=== PATIENT | male | born 1975 | race Caucasian/White ===

== ENCOUNTER 2019-10-13 08:21 | Emergency (ER) | payer MEDICAID, SELFPAY ==
--- NOTE | ~2019-10-13 | XR_ITS ---
EXAMINATION: XR chest 1V portable DATE: 10/13/2019 09:16 INDICATION: Hyperventilation. Anxiety. TECHNIQUE: A single frontal view of the chest was obtained. COMPARISON: CT abdomen and pelvis 04/03/2017 FINDINGS: The chest demonstrates clear lungs without pneumonia, pleural effusion, or pneumothorax. Th e heart size is normal. IMPRESSION: 1. No acute cardiopulmonary disease. Reviewed, dictated and finalized at location A.
[2019-10-13 08:30] VITALS: BP 139/79; PULSE 56; RESP 17; TEMP 36.1; O2SAT 100
[2019-10-13] MEDS: LORazepam 0.5 MG TABLET 1 MG PO (09:06)
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
[2019-10-13 09:40] VITALS: BP 122/67; PULSE 50; RESP 16; O2SAT 98
== END 2019-10-13 09:40 | disposition home or self-care (01) ==
PROVIDERS: Emergency Provider Emergency Medicine
DX: F41.9 Anxiety disorder, unspecified (principal); R06.4 Hyperventilation; F17.210 Nicotine dependence, cigarettes, uncomplicated
CPT/HCPCS: 71045; 99283; A9270

== ENCOUNTER 2020-11-28 08:39 | Emergency (ER) | payer OTHER, SELFPAY ==
--- NOTE | ~2020-11-28 | US_ITS ---
EXAMINATION: US abdomen limited DATE: 11/28/2020 10:25 INDICATION: Epigastric abdominal pain. TECHNIQUE: Multiple grayscale and Doppler ultrasound images of the abdomen were obtained. COMPARISON: CT abdomen and pelvis 04/03/2017 FINDINGS: The visualized portions of the head, body, and tail of the pancreas are normal. The liver i s normal without focal lesion. No liver surface nodularity. There is normal flow in main portal vein. The gallbladder is normal in size. No gallstones or gallbladder wall thickening. There was no sonogr aphic Rutledge sign. The common duct is normal and measures 5 mm. IMPRESSION: 1. Normal right upper quadrant ultrasound. Reviewed, dictated and finalized at location A.
[2020-11-28 08:41] VITALS: BP 135/70; PULSE 51; RESP 17; TEMP 36.8; O2SAT 97
[2020-11-28 09:02] VITALS: BP 121/59; O2SAT 96
--- NOTE | 2020-11-28 09:17 | ED.ABDPAIN ---
HPI - Abdominal Pain General Chief Complaint: Abdominal Pain Stated Complaint: ABD PAIN Time Seen by Provider: 11/28/20 08:54 Source: patient and RN notes reviewed Mode of arrival: EMS Limitations: no limitations History of Present Illness HPI narrative: This is a 45 year old male who presents for evaluation of epigastric abdominal pain. He developed pain 1 week ago. He reports his pain was mild initially but it became severe this morning. He called EMS and he was given fentanyl, so he states his pain is 1/10 currently. Approximately 1 month ago, he was admitted to [facility] for evaluation for bleeding ulcer. He had an upper endoscopy performed which showed nonbleeding duodenal ulcer and biopsy was performed at this time. He was discharged from hospital on 11/05/20 without any pain. He has been taking protonix twice a day as prescribed. He states he has not been eating very healthy over the past week so he thought that may be causing his pain. He denies melena but thinks he may have seen blood tinge in his stool yesterday. He developed nausea and vomiting this morning with his severe pain. He has appointment with PCP in 2 days. Related Data Home Medications Medication Instructions Recorded Confirmed alprazolam 0.5 mg PO DAILY 10/13/19 pantoprazole [Protonix] 20 mg PO QAM 11/28/20 Allergies Allergy/AdvReac Type Severity Reaction Status Date / Time iodixanol Allergy Unknown hives, Verified 11/28/20 08:55 itching Review of Systems Review of Systems: All systems reviewed & are unremarkable except as noted in HPI and below PMFSH Past Medical History Medical History (Updated 11/28/20 @ 11:15 by Katheryn Horne MD) Anxiety Duodenal ulcer disease Social History Social History (Updated 10/13/19 @ 09:26 by Td Pool MD) Tobacco type: cigarettes Alcohol intake: current Substance use: unknown Gender identity (if verbalized by the patient): Male Exam Const: General: no acute distress and alert Orientation/consciousness: patient oriented x3 Eyes: EOM: EOMs intact bilaterally Chest: Chest palpation & inspection: normal inspection of the chest Resp: Effort & Inspection: normal respiratory effort and no retractions Auscultation: clear to auscultation bilaterally Cardio: Rate: regular rate Rhythm: regular rhythm Heart sounds: no murmurs GI: GI Palp: Yes Soft to palpation, Yes Tenderness to palpation present (GI) (epigastric) and No Guarding due to palpation present (GI) Auscultation: normal bowel sounds Rectal Exam: normal sphincter tone Other: heme negative- guaic negative Skin: General skin exam: normal color Neuro: General: patient oriented x3, moves all extremities and CN's II-XI intact bilaterally Psych: Mental Status: mental status grossly normal Affect: normal affect Course Reevaluation(s) Reevaluation #1: Patient has no abdominal tenderness, nausea or vomiting. Abdominal exam is benign. I discussed labs are unremarkable . No sign of GI bleeding at this time with heme negative. He will follow up with doctor in 2 days. Date: 11/28/20 Time: 11:13 Vital Signs Vital signs: Vital Signs Temperature 98.2 F 11/28/20 08:41 Pulse Rate 51 L 11/28/20 08:41 Respiratory Rate 17 11/28/20 08:41 Blood Pressure 135/70 11/28/20 08:41 Pulse Oximetry 97 11/28/20 08:41 Temperature 98.2 F 11/28/20 08:41 Pulse Rate 64 11/28/20 10:36 Respiratory Rate 17 11/28/20 08:41 Blood Pressure 128/74 11/28/20 10:36 Pulse Oximetry 96 11/28/20 09:02 MDM - Abdominal Pain Lab Data Attestation: I reviewed the patient's lab results. Result diagrams: 11/28/20 09:31 11/28/20 09:31 Labs: Lab Results 11/28/20 11/28/20 11/28/20 Range/Units 09:31 09:31 09:31 WBC 9.1 (4.5-10.0) K/mm3 RBC 4.24 L (4.6-6.20) M/mm3 Hgb 13.2 L (14.0-18.0) g/dL Hct 40.6 L (42.0-52.0) % MCV 95.8 (80-100) fl MCH 31.1
[2020-11-28] MEDS: PANTOPRAZOLE SODIUM IV 40 MG VIAL IV PUSH (09:35)
[2020-11-28 09:40] LABS: Basophils Absolute Auto 0.1 K/mm3 (0.0-0.1); Basophils Percent Auto 0.8 % (0.2-1.2); Eosinophils Absolute Auto 0.2 K/mm3 (0-0.3); Eosinophils Percent Auto 2.5 % (0-4.4); Hematocrit 40.6 % (42.0-52.0); Hemoglobin 13.2 g/dL (14.0-18.0); Immature Granulocyte Absolute 0.02 K/mm3 (0.00-0.031); Immature Granulocyte Percent A 0.2 % (0-0.5); Lymphocytes Absolute Auto 1.59 K/mm3 (0.9-3.2); Lymphocytes Percent Auto 17.4 % (18.3-44.2); Mean Corpuscular HGB Conc 32.5 g/dl (32-36); Mean Corpuscular Hemoglobin 31.1 pg (26-34); Mean Corpuscular Volume 95.8 fl (80-100); Mean Platelet Volume 10.7 fl (7.4-10.4); Monocytes Absolute Auto 0.5 K/mm3 (0.1-0.6); Monocytes Percent Auto 5.7 % (2.6-8.5); Neutrophils Absolute Auto 6.7 K/mm3 (1.3-6.7); Neutrophils Percent Auto 73.4 % (45.5-73.1); Platelet Count Result 210 k/mm3 (150-375); Red Blood Count 4.24 M/mm3 (4.6-6.20); Red Cell Distribution Width 13.5 % (11.5-14.5); White Blood Count 9.1 K/mm3 (4.5-10.0)
[2020-11-28 09:52] LABS: Alanine Aminotransferase 25 U/L (4-50); Albumin Level 4.6 g/dL (3.5-5.1); Alkaline Phosphatase 97 U/L (38-126); Anion Gap 5 mmol/L (8-16); Aspartate Amino Transferase 41 U/L (17-59); Bilirubin,Total 0.2 mg/dL (0.2-1.3); Blood Urea Nitrogen 22 mg/dL (9-20); Calcium 9.8 mg/dL (8.4-10.2); Carbon Dioxide 36 mmol/L (22-30); Chloride 104 mmol/L (98-107); Estimated CRCL calculation 71 ml/min; Estimated Glomerular Filt Rate 60; Glucose 114 mg/dL (65-110); Lipase 99 U/L (23-300); Potassium 4.1 mmol/L (3.4-5.0); Sodium 145 mmol/L (137-145)
[2020-11-28 10:33] VITALS: BP 116/58; PULSE 57
[2020-11-28 10:34] VITALS: BP 117/63; PULSE 50
[2020-11-28 10:36] VITALS: BP 128/74; PULSE 64
[2020-11-28 10:42] LABS: Add Urine Microscopic? YES; Amorphous Sediment Urine Few; Appearance Urine Cloudy (Clear); Bilirubin Urine Negative (Negative); Blood Urine Negative (Negative); Color Urine Yellow (Yellow); Glucose Urine UA Negative (Negative); Ketones Urine Negative (Negative); Leukocyte Esterase Ur Negative LEU/UL (Negative); Mucus Urine Rare /lpf; Nitrate Urine Negative (Negative); Protein Urine 2+ mg/dL (Negative); RBC Urine 0-2 /hpf (0-2); Squamous Epithelial Cell Urine Rare /hpf (Few); Urobilinogen Urine Negative mg/dL (<2.0); WBC Urine 0-3 /hpf
== END 2020-11-28 11:44 | disposition home or self-care (01) ==
PROVIDERS: Emergency Provider General Practice
DX: R10.13 Epigastric pain (principal); F17.210 Nicotine dependence, cigarettes, uncomplicated; F41.9 Anxiety disorder, unspecified
CPT/HCPCS: 36415; 76705; 80053; 81001; 83690; 85025; 86850; 86900; 86901; 96374; 99284; C9113

== ENCOUNTER 2022-07-18 15:57 | Emergency (ER) | payer OTHER, SELFPAY ==
--- NOTE | ~2022-07-18 | CT_ITS ---
EXAMINATION: CT chest abdomen pelvis wo con DATE: 07/18/2022 18:01 INDICATION: Shortness of breath. Left lower quadrant abdominal pain. Fall from 6 feet. TECHNIQUE: Computed tomography (CT) of the chest, abdomen, and pelvis was performed without intraveno us contrast. Automated exposure control and iterative reconstruction technique were employed. The dos e-length product was 1057.93 mGy-cm. COMPARISON: CT abdomen and pelvis 04/03/2017 FINDINGS: CHEST CT: There is mild scarring at the lung apices. There is mild atelectasis bilaterally. No pleural effusion . There is an aberrant right subclavian artery. The heart size is normal. No pericardial effusion. Th ere is mild thoracic spondylosis. ABDOMEN/PELVIS CT: The liver, gallbladder, spleen, pancreas, adrenal glands, and kidneys are normal. There is no urolith iasis. There are no dilated loops of bowel. The appendix is normal. There is an umbilical hernia cont aining fat. There are no pathologically enlarged lymph nodes. There is a left inguinal hernia contain ing fat. There is no free intraperitoneal fluid. There is mild lumbar spondylosis. IMPRESSION: 1. Umbilical hernia and left inguinal hernia containing fat. Reviewed, dictated and finalized at location E.
[2022-07-18 16:29] VITALS: BP 124/71; PULSE 56; RESP 18; TEMP 36.8; O2SAT 100
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
[2022-07-18] MEDS: LIDOCAINE 5% PATCH 1 PATCH TRANSDERM (17:49)
[2022-07-18] MEDS: ACETAMINOPHEN 325 MG TABLET 650 MG PO (18:26)
[2022-07-18] MEDS: IBUPROFEN 600 MG TABLET PO (18:26)
[2022-07-18 19:14] VITALS: BP 136/78; PULSE 61; RESP 15; O2SAT 98
== END 2022-07-18 19:22 | disposition home or self-care (01) ==
PROVIDERS: Emergency Provider Physician Assistant
DX: S29.9XXA Unspecified injury of thorax, initial encounter (principal); F41.9 Anxiety disorder, unspecified; F17.210 Nicotine dependence, cigarettes, uncomplicated; W17.89XA Other fall from one level to another, initial encounter
CPT/HCPCS: 71250; 74176; 99284; A9270